=== PATIENT | male | born 1970 | race Caucasian/White ===

== ENCOUNTER 2018-08-02 12:53 | Day surgery (SDC) | payer OTHER ==
[2018-07-30 10:03] VITALS: BMI 31.7
[2018-08-02] VITALS (17 sets, daily range): BP systolic 97–167; BP diastolic 63–90; PULSE 74–110; RESP 13–27; Ht 167.6 cm; Wt 89.5 kg
[~2018-08-02] VITALS: Ht 167.6 cm; Wt 89.5 kg
--- NOTE | 2018-08-02 05:56 | HPN ---
Date/Time of Note Date/Time of Note DATE: 08/02/18 TIME: 05:56 Interval H&P Admission Note Pt. seen H&P reviewed: No system changes DEJA ALDANA MD Aug 02, 2018 05:56
--- NOTE | 2018-08-02 05:58 | OPR ---
Date/Time of Note Date/Time of Note DATE: 08/02/18 TIME: 05:56 Operative Report Procedure Date: Aug 02, 2018 Preoperative Diagnosis Left shoulder rotator cuff tear Postoperative Diagnosis 1. Left shoulder biceps tendon tear 2. Left shoulder rotator cuff tear 3. Left shoulder acromioclavicular joint arthritis 4. Left shoulder impingement Operation/Procedure Performed 1. Left shoulder arthroscopic rotator cuff repair 2. Left shoulder arthroscopic biceps tenodesis 3. Left shoulder arthroscopic distal clavicle excision 4. Left shoulder arthroscopic acromioplasty 5. Left shoulder arthroscopic extensive debridement of glenohumeral joint Surgeon see signature line Specialty Department Supervisor Tarun Stone DO Anesthesia Type: general Estimated Blood Loss: 0 - 10 ml's Transfusion none Specimen None Grafts/Implants See body of op note Complications none Pt Condition Post Procedure: stable Disposition: PACU Procedure Description ELECTRICAL UNIT REBUILDER SURGEON: Tarun Stone DO was asked to be present at my request as a result of the complexity associated with this procedure including positioning of the extremities, manipulation of the arthroscope and assistance with time. In my opinion the assistance offered by a surgical orderly is insufficient and Dr. Stone should be compensated for his time. PROCEDURE IN DETAIL: Following the administration of general anesthesia supplemented with a peripheral nerve block for postoperative pain control, the patient was examined under anesthesia. Examination of the right shoulder re vealed some stiffness including a forward flexion of about 140 abduction 80 maximal external rotation with mild crepitus anteriorly. The patient was then placed in the left lateral decubitus position. Sterile prep and drape was then undertaken of the right shoulder. Anterior and posterior glenohumeral portals were established. Glenohumeral arthroscopy revealed that the humeral and glenoid articular cartilage had significant grade 2 changes throughout. In addition, the humeral head had diffuse grade 2 changes within the area anterolaterally over the biceps tendon there was grade 3 in nature. The superior labrum was diffusely torn with extensive fraying that extended into the bicipital groove with severe synovitis. In addition, there was severe synovitis in the bicipital groove. The biceps was subluxed into the bicipital groove. There was significant detachment proximally. The subscapularis was visualized and this was normal. There was no tearing there. Further evaluation of the supraspinatus the a complete tear measuring 2 x 1 cm. Significant synovitis was noted in that space. The biceps was then prepared for tenodesis as well as the bicipital groove area. Furthermore, the rotator cuff footprint was then debrided down to stable tissue. The subacromial space was then entered and very severe bursal reactive tissue was noted. There was very thickened coracoacromial ligament and severe arthritic changes in the acromioclavicular joint. The coracoacromial ligament was then released and the anterior acromion was then beveled to a flat area approximately 7 mm of the anterior acromion were resected. Following this the distal clavicle was then cleared of soft tissue and severe arthritic changes were noted a distal clavicle excision was then performed resecting 10 mm of the lateral clavicle. A good decompression was confirmed. The rotator cuff edges were then debrided and preparation of the area of the cuff avulsion down to a bleeding bed was undertaken. The edges of the frayed tissue were debrided down to healthy tissue. Two 5.5 mm, triple loaded titanium anchors were then placed into the tuberosity and all of the sutures were then passed. The first 2 sutures were passed through the biceps tendon and the biceps was tenodesed to the bicipital groove with solid fixation. The rest of the sutures were then passed through the rotator cuff and a solid repair was noted after using sliding, locking knots, a solid repair of the rotator cuff was completed. The joint was then thoroughly irrigated, the deep tissues were approximated using 4-0 Monocryl f followed by a sterile dressing. A sling was then applied. The patient was awakened and transported to the recovery room in stable condition. DEJA ALDANA MD Aug 02, 2018 05:58
[~2018-08-02 12:53] MED LIST: BUPIVACAINE 0.5% (SDV) 30 ML, morphine SULFATE (PF) 8 MG, EPINEPHrine 0.3 MG, KETOROLAC... IRR SCH; CEFAZOLIN 2 GM/50 ML (PMX) 50 ML IVPB ONE; DEXAMETHASONE 2 MG TAB PO ONE; GABAPENTIN 300 MG CAP PO ONE; TRANEXAMIC ACID 1,000 MG in DEXTROSE 5% 100 ML IVPB ONE
[2018-08-02] MEDS ORDERED: METF100010 PO (13:25)
[2018-08-02] MEDS ORDERED: GABA300C16 PO (13:26)
[2018-08-02] MEDS ORDERED: OMEP20CA16 PO (13:26)
[2018-08-02] MEDS ORDERED: BENA40TA56 PO (13:27)
[2018-08-02] MEDS ORDERED: SIMV20TA PO (13:27)
[2018-08-02] MEDS ORDERED: PARO30TA48 PO (13:28)
[2018-08-02] MEDS ORDERED: PIOG15TA67 PO (13:28)
[2018-08-02] MEDS ORDERED: PARO-2 PO (13:28)
[2018-08-02] MEDS ORDERED: ALOG25TA2 PO (13:29)
[2018-08-02] MEDS ORDERED: EMPA25TA PO (13:29)
[2018-08-02] MEDS ORDERED: INSU100I33 SC (13:30)
[2018-08-02] MEDS ORDERED: NOVO3I SC (13:30)
[2018-08-02] MEDS ORDERED: FENTAnyl 50 MCG/ML VIAL ONE (14:53)
[2018-08-02] MEDS ORDERED: ROCURONIUM 50 MG INJ ONE (14:53)
[2018-08-02] MEDS ORDERED: ONDANSETRON 4 MG INJ ONE (14:53)
[2018-08-02] MEDS ORDERED: CEFAZOLIN 1 GM INJ ONE (14:53)
[2018-08-02] MEDS ORDERED: GLYCOPYRROLATE 0.4 MG INJ ONE (14:53)
[2018-08-02] MEDS ORDERED: PROPOFOL 20 ML ONE (14:53)
[2018-08-02] MEDS ORDERED: DEXAMETHASONE 4 MG/ML 5 ML INJ ONE (14:53)
[2018-08-02] MEDS ORDERED: MIDAZOLAM 1 MG/ML 2 ML INJ ONE (14:53)
[2018-08-02] MEDS ORDERED: ROPIVACAINE 0.5 % 30 ML VIAL ONE (14:53)
[2018-08-02] MEDS ORDERED: NEOSTIGMINE 3 MG/3 ML SYRINGE ONE (14:53)
--- NOTE | 2018-08-02 15:35 | PREAC ---
Date/Time of Note Date/Time of Note DATE: 08/02/18 TIME: 15:33 Anesthesia Eval and Record Evaluation Time Pre-Procedure Interview DATE: 08/02/18 TIME: 15:33 Age 48 Sex male NPO: 8 hrs Preoperative diagnosis LEFT SHOULDER ROTATOR CUFF TEAR Planned procedure LEFT SHOULDER ARTHROSCOPY, ROTATOR CUFF REPAIR Past Medical History Past Medical History: Includes Cardio: Dyslipidemia Endo: Diabetes GI: Obesity Surgery & Anesthesia Issues No known issue Meds Anticoagulation: No Beta Teddy within 24 hr: No Reason Beta Teddy not given: Pt. not on B-Teddy Reported Medications Insulin Aspart* (Novolog Insulin Pen*) 100 Unit/Ml Soln, 10 UNIT SC WITH MEALS, EA 08/02/18 Insulin Glargine,Hum.rec.anlog (Basaglar Kwikpen U-100) 100 Unit/1 Ml Insuln.pen, 32 UNIT SC BID, EA 08/02/18 Alogliptin Benzoate (Alogliptin) 25 Mg Tablet, 25 MG PO QHS, TAB 08/02/18 Empagliflozin (Jardiance) 25 Mg Tablet, 25 MG PO DAILY, TAB 08/02/18 Pioglitazone Hcl* (Pioglitazone Hcl*) 15 Mg Tablet, 15 MG PO QHS, TAB 08/02/18 Paroxetine Hcl* (Paxil*) 30 Mg Tablet, 30 MG PO HS, TAB 08/02/18 Paroxetine Hcl* (Paxil*) 20 Mg Tablet, 20 MG PO QAM, TAB 08/02/18 Benazepril Hcl* (Benazepril Hcl*) 40 Mg Tablet, 40 MG PO QHS, #30 TAB 08/02/18 Simvastatin* (Zocor*) 20 Mg Tablet, 20 MG PO QHS, #30 TAB 08/02/18 Gabapentin* (Gabapentin*) 300 Mg Capsule, 300 MG PO QHS, #60 CAP 08/02/18 Omeprazole* (Omeprazole*) 20 Mg Capsule.dr, 20 MG PO DAILY, #30 CAP 08/02/18 Metformin Hcl* (Metformin Hcl*) 1,000 Mg Tablet, 1000 MG PO WITH BREAKFAST DINNE, #60 TAB 08/02/18 Meds reviewed: Yes Allergies Coded Allergies: No Known Allergy (Unverified , 08/02/18) Allergies Reviewed: Yes Labs/Studies Labs Reviewed: Reviewed by anesthesiologist Result Diagram: 08/02/18 1330 Laboratory Tests 08/02/18 13:30 test: N/A Studies: ECG (NL), CXR (NAPD) Pre-procedure Exam Last vitals Vital Signs Date Temp Pulse Resp B/P (MAP) Pulse Ox O2 O2 Flow FiO2 Time Delivery Rate 08/02/18 97.5 74 16 109/74 98 Room Air 13:47 (86) Airway: Adequate mouth opening, Adequate thyromental dist Mallampati: Mallampati II Teeth: Normal Lung: Normal Heart: Normal ASA Physical Status ASA physical status: 2 Emergency: None Planned Anesthetic General/MAC: ETT Nerve block: Brachial plexus (left) Planned Pain Management Single shot nerve block, Parenteral pain med Pre-operative Attestations Prior to commencing anesthesia and surgery, the patient was re-evaluated, there was verification of: *The patient's identity *The results of appropriate recent lab work and preoperative vital signs *The above evaluation not changing prior to induction *Anesthetic plan, risk benefits, alternative and complications discussed with patient/family; questions answered; patient/family understands, accepts and wishes to proceed. Godfrey Raygoza M.D. Aug 02, 2018 15:35
[2018-08-02] MEDS ORDERED: TRIMETHOBENZAMIDE 100 MG/ML VIAL IM PRN (16:00)
[2018-08-02] MEDS ORDERED: LABETALOL HCL 20MG INJ IV PRN (16:00)
[2018-08-02] MEDS ORDERED: hydrALAzine 20 MG INJ IV PRN (16:00)
[2018-08-02] MEDS ORDERED: OXYCODONE/ACETAMINOPHEN (5/325) TAB PO PRN ×2 (16:00)
[2018-08-02] MEDS ORDERED: MIDAZOLAM 1 MG/ML 2 ML INJ IV PRN (16:00)
[2018-08-02] MEDS ORDERED: MEPERIDINE 25 MG INJ IV PRN (16:00)
[2018-08-02] MEDS ORDERED: IPRATROPIUM (NEB) 0.5 MG/2.5 ML AMP HHN PRN (16:00)
[2018-08-02] MEDS ORDERED: FENTAnyl 50 MCG/ML VIAL IV PRN ×3 (16:00)
[2018-08-02] MEDS ORDERED: EPHEDrine SULFATE 50 MG/5 ML SYG IV PRN (16:00)
[2018-08-02] MEDS ORDERED: ALBUTEROL 0.083% (NEB) 2.5 MG/3 ML AMP HHN PRN (16:00)
[2018-08-02] MEDS ORDERED: DIPHENHYDRAMINE 50 MG INJ IV PRN (16:00)
[2018-08-02] MEDS ORDERED: ONDANSETRON 4 MG INJ IV PRN (16:00)
[2018-08-02] MEDS ORDERED: HYDROmorphONE 1 MG/5 ML IV SYRINGE IV PRN ×3 (16:00)
[2018-08-02] MEDS ORDERED: EPINEPHrine 1 MG/ML 30 ML INJ IRR SCH (16:30)
--- NOTE | 2018-08-02 17:23 | PDOCDIS ---
Discharge Instructions DIAGNOSIS Discharge Diagnosis Rotator cuff tear CONDITION [id number] Patient Condition: [id number] Good HOME CARE INSTRUCTIONS: [id number] Diet Instructions: [id number] Regular ACTIVITY: [id number] Activity Restrictions: [id number] Slowly Increase Activity Keep Limb Elevated [id number] Bathing Restrictions: [id number] Shower FOLLOW UP/APPOINTMENTS Follow-up Plan 2 weeks SCHOOL/WORK RELEASE May return to School/Work with: With Restrictions School/Work Release Comment: 5 pound tabletop usage for 6 weeks DEJA ALDANA MD Aug 02, 2018 17:23
--- NOTE | 2018-08-02 17:37 | PAC ---
Date/Time of Note Date/Time of Note DATE: 08/02/18 TIME: 17:37 Post-Anesthesia Notes Post-Anesthesia Note Last documented vital signs Vital Signs Date Temp Pulse Resp B/P (MAP) Pulse Ox O2 O2 Flow FiO2 Time Delivery Rate 08/02/18 97.5 74 16 109/74 98 Room Air 13:47 (86) Activity: WNL Respiratory function: WNL Cardiovascular function: WNL Mental status: Baseline Pain reasonably controlled: Yes Hydration appropriate: Yes Nausea/Vomiting absent: Yes Godfrey Raygoza M.D. Aug 02, 2018 17:37
== END 2018-08-02 18:50 | disposition home or self-care (01) ==
LOC: SDS 12:53
PROVIDERS: ATTEND Orthopaedic Surgery
DX: S46.012A Strain of muscle(s) and tendon(s) of the rotator cuff of left shoulder, initial encounter (principal); S46.212A Strain of muscle, fascia and tendon of other parts of biceps, left arm, initial encounter; M75.42 Impingement syndrome of left shoulder; M19.012 Primary osteoarthritis, left shoulder; E78.5 Hyperlipidemia, unspecified; E11.9 Type 2 diabetes mellitus without complications; E66.9 Obesity, unspecified; X58.XXXA Exposure to other specified factors, initial encounter; Y93.89 Activity, other specified; Y92.89 Other specified places as the place of occurrence of the external cause; Y99.8 Other external cause status
CPT/HCPCS: 29824; 29826; 29827; 29828; 82962; 85025; J0171; J0690; J1100; J2250; J2405; J2710; J2795; J3010; J0735; J1885; J2274; J3370